=== PATIENT | female | born 1980 | race Hispanic/Latino ===

== ENCOUNTER 2020-09-27 21:05 | Emergency (ER) | payer OTHER, SELFPAY ==
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
[2020-09-27 21:06] VITALS: BP 120/74; PULSE 87; RESP 20; TEMP 37.2; O2SAT 100
[2020-09-27] MEDS: KETOROLAC 30 MG/ML VIAL (*BKC) IV PUSH (21:36)
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
--- NOTE | 2020-09-27 22:37 | PC.NURSE ---
ok per dr jesus to remove the c-collar.
[2020-09-27 22:44] VITALS: BP 118/70; PULSE 77; RESP 20; O2SAT 98
== END 2020-09-27 23:27 | disposition home or self-care (01) ==
PROVIDERS: Emergency Provider Emergency Medicine
DX: M25.512 Pain in left shoulder (principal); S16.1XXA Strain of muscle, fascia and tendon at neck level, initial encounter; E04.1 Nontoxic single thyroid nodule; V49.50XA Passenger injured in collision with unspecified motor vehicles in traffic accident, initial encounter
CPT/HCPCS: 72125; 73030; 96374; 99284; J1885